=== PATIENT | female | born 1950 | race Caucasian/White ===

== ENCOUNTER 2024-01-15 15:45 | Emergency (ER) | payer MEDICARE, MEDICAID ==
[~2024-01-15] VITALS: Ht 157.5 cm; Wt 73.9 kg
[2024-01-15 15:53] VITALS: O2SAT 98
[2024-01-15] MEDS: IBUPROFEN 600MG TABLET PO ONE (18:53)
[2024-01-15] MEDS ORDERED: IBUP-2029 MT (19:19)
[2024-01-15 20:03] VITALS: BP 145/78; PULSE 88; RESP 16; TEMP 36.78072; O2SAT 98
== END 2024-01-15 20:05 | disposition home or self-care (01) ==
LOC: ER 15:45
DX: M25.532 Pain in left wrist (principal); E11.9 Type 2 diabetes mellitus without complications; E78.00 Pure hypercholesterolemia, unspecified; I10 Essential (primary) hypertension; Z90.710 Acquired absence of both cervix and uterus
CPT/HCPCS: 73100; 73110; 99283